=== PATIENT | male | born 1955 | race Caucasian/White ===

== ENCOUNTER 2021-08-15 09:45 | Emergency (ER) | payer BC, MEDICARE, OTHER ==
[2021-08-15] MEDS ORDERED: Ketorolac 60 MG/2 ML SDV IM ONE (10:04)
--- NOTE | 2021-08-15 12:06 | EDM.PDOC ---
ED HPI GENERAL MEDICAL PROBLEM - General Chief Complaint: General Stated Complaint: pain Time Seen by Provider: 08/15/21 10:00 Source of Information: Reports: Patient, RN Notes Reviewed History Limitations: Reports: No Limitations - History of Present Illness INITIAL COMMENTS - FREE TEXT/NARRATIVE: This patient presents to the emergency department for evaluation of pain. He states he had a sudden onset of left lower back pain this morning that woke him from sleep. He has never had any kind of pain like this before and states that it is unbearable. He was unable to urinate at home. He has not tried anything for the pain but came in right away. He denies fever, cough, chest pain, difficulty breathing. He states he has some nausea which he thinks is related to the pain but has had no vomiting or diarrhea. He denies other concerns or complaints he has no history of kidney disease Bilateral Flank Pain Score (Numeric/FACES): 0 - Related Data Allergies Allergy/AdvReac Type Severity Reaction Status Date / Time No Known Allergies Allergy Verified 08/15/21 10:23 Home Meds: Home Meds Fenofibrate,Micronized [Fenofibrate] 160 mg PO DAILY 08/15/21 [History] Insulin Glarg,Human.Rec.Analog [Lantus Solostar] 20 unit SUBCUT DAILY 08/15/21 [History] Levothyroxine Sodium [Levothyroxine] 0.175 mcg PO DAILY 08/15/21 [History] atorvaSTATin [Lipitor] 40 % PO DAILY 08/15/21 [History] carvediloL [Carvedilol] 25 mg PO BID 08/15/21 [History] glipiZIDE [Glucotrol] 10 mg PO DAILY 08/15/21 [History] Past Medical History Cardiovascular History: Reports: AR, Stents Endocrine/Metabolic History: Reports: Diabetes, Type II - Past Surgical History Musculoskeletal Surgical History: Reports: Shoulder Surgery, Other (See Below) Other Musculoskeletal Surgeries/Procedures:: knee surgery Social & Family History - Recreational Drug Use Recreational Drug Use: No ED ROS GENERAL - Review of Systems Review Of Systems: Comprehensive ROS is negative, except as noted in HPI. ED EXAM, GENERAL - Physical Exam Exam: See Below Exam Limited By: No Limitations General Appearance: Alert, No Apparent Distress, Severe Distress (Screaming in pain) Eye Exam: Bilateral Eye: EOMI, Normal Inspection, PERRL Ears: Normal External Exam Throat/Mouth: Normal Inspection Head: Atraumatic, Normocephalic Respiratory/Chest: No Respiratory Distress, Lungs Clear, Normal Breath Sounds, No Accessory Muscle Use Cardiovascular: Regular Rate, Rhythm Back Exam: CVA Tenderness (L). No: CVA Tenderness (R) Neurological: Alert, Oriented Psychiatric: Anxious Skin Exam: Warm, Dry Course - Vital Signs Last Recorded V/S: Last Vital Signs Temp 36.1 C 08/15/21 10:20 Pulse 80 08/15/21 10:20 Resp 16 08/15/21 10:20 BP 132/69 08/15/21 10:20 Pulse Ox 100 08/15/21 10:20 - Orders/Labs/Meds Orders: Active Orders 24 hr Category Date Time Status Abdomen Pelvis wo Cont [CT] Stat Exams 08/15/21 10:13 Taken Labs: Laboratory Tests 08/15/21 Range/Units 09:49 Urine Color Yellow Urine Appearance Clear (CLEAR) Urine pH 6.5 (5.0-8.0) Ur Specific Forbes 1.015 (1.003-1.030) Urine Protein Negative (NEGATIVE) mg/dL Urine Glucose (UA) 500 H (NEGATIVE) mg/dL Urine Ketones Trace H (NEGATIVE) mg/dL Urine Occult Blood Trace-lysed H (NEGATIVE) Urine Nitrite Negative (NEGATIVE) Urine Bilirubin Negative (NEGATIVE) Urine Urobilinogen 0.2 (0.2-1.0) E.U./dL Ur Leukocyte Esterase Negative (NEGATIVE) Urine RBC 0-5 H /HPF Urine WBC 0-5 H /HPF Ur Squamous Epith Cells Few /HPF Meds: Medications Discontinued Medications Generic Name Dose Route Start Last Admin Trade Name Freq PRN Reason Stop Dose Admin Ketorolac Tromethamine 60 mg 08/15/21 10:04 08/15/21 10:10 Ketorolac 60 Mg/2 Ml Sdv IM 08/15/21 10:05 60 mg ONETIME ONE Administration - Re-Assessments/Exams Free Text/Narrative Re-Assessment/Exam: This patient presents to the emergency department for evaluation of left flank pain. History and urinalysis is most consistent with a kidney stone; however, CT scan does not confirm this. He did have a rather sudden resolution of his pain while sitting on the toilet to pee just after he was given Toradol. I am suspicious that he may have passed a kidney stone at that time which was gone unnoticed. He did have a CT after that time. After his CT scan he is completely comfortable in the ED, I did share the findings from his CT with him and that it included some moderate constipation. He understands that I cannot attribute his pain to any one particular thing today but I did share my suspicion with him that he had had a kidney stone which was passed. His pain was completely controlled in the emergency department with some Toradol and he is hemodynamically stable. His physical exam is otherwise negative. He will be discharged to home with instructions to follow-up as needed. The patient was stable at the time of discharge. 08/15/21 12:40 Departure - Departure Time of Disposition: 12:15 Disposition: Home, Self-Care 01 Condition: Good Clinical Impression: Back pain, Constipation - Discharge Information Instructions: Constipation, Adult, [id number], Kidney Stones, [id number] Referrals: PCP,None [Primary Care Provider] - Forms: ED Department Discharge Care Plan Goals: follow up as needed. Sepsis Event Note (ED) - Evaluation Sepsis Screening Result: No Definite Risk - Focused Exam Vital Signs: Vital Signs Temp Pulse Resp BP Pulse Ox 08/15/21 10:20 36.1 C 80 16 132/69 100 08/15/21 09:58 35.5 C L 78 20 100 - My Orders Last 24 Hours: My Active Orders 08/15/21 10:13 Abdomen Pelvis wo Cont [CT] Stat - Assessment/Plan Last 24 Hours: My Active Orders 08/15/21 10:13 Abdomen Pelvis wo Cont [CT] Stat
--- NOTE | 2021-08-17 10:14 | CT ---
DATE OF SERVICE: 08/15/2021 CLINICAL DATA: R/O stone. UNENHANCED ABDOMEN AND PELVIC CT: Multislice axial acquisition without IV or oral contrast was performed. There are atelectatic/fibrotic changes in a linear segment of the left upper lobe. The lung bases are otherwise clear. The heart size is normal. There are cardiac pacer wires in place. The unenhanced liver appears normal. No focal hepatic lesions. The gallbladder appears normal. No calcified gallstones. No pericholecystic fluid. The spleen appears normal. The pancreas appears normal. The right and left adrenals appear normal. The right and left kidneys appear normal. No nephrocalcinosis or nephrolithiasis. No hydronephrosis or hydroureter. The appendix is not dilated. No evidence of appendicitis. There is a moderate amount of stool present throughout the colon and rectum. No free air. No free fluid. No dilated loops of bowel. No adenopathy. No aortic aneurysm. There is mild diffuse gastric wall thickening. This is probably related to nondistention. There is a small hiatal hernia. There is a fat containing umbilical hernia. There are bilateral fat containing inguinal hernias. There is degenerative disc disease throughout the lower thoracic and lumbar spine. There is mild compression deformity of multiple lower thoracic vertebrae, age indeterminate. No other significant findings. [id number] [facility]
== END 2021-08-15 12:08 | disposition home or self-care (01) ==
LOC: LB.ED 09:45
DX: M54.50 Low back pain, unspecified (principal); K59.00 Constipation, unspecified; E11.9 Type 2 diabetes mellitus without complications; Z79.4 Long term (current) use of insulin; Z79.899 Other long term (current) drug therapy
CPT/HCPCS: 74176; 81001; 96372; 99284; J1885

== ENCOUNTER 2025-01-24 12:27 | Emergency (ER) | payer SELFPAY ==
[2025-01-24] MEDS: Lactated Ringers 1,000 ML IV SCH (12:33)
[2025-01-24] MEDS ORDERED: Sodium Chloride 0.9% 10 ML Syringe FLUSH PRN (12:36)
[2025-01-24 13:16] LABS: BASOPHILS ABSOLUTE AUTO 0.03 K/uL (0.02-0.10); BASOPHILS PERCENT AUTO 0.5 % (0.0-0.5); EOSINOPHILS ABSOLUTE AUTO 0.06 K/uL (0.04-0.40); HEMATOCRIT 32.9 % (40.0-54.0); HEMOGLOBIN 11.7 g/dL (13.0-18.0); LYMPHOCYTES ABSOLUTE AUTO 0.41 K/uL (1.50-4.00); MEAN CORPUSCULAR HEMOGLOBIN 32.7 pg (27.0-32.0); MEAN CORPUSCULAR HGB CONC 35.6 g/dL (31.0-35.0); MEAN CORPUSCULAR VOLUME 92 fL (76-96); MEAN PLATELET VOLUME 10.2 fL (6.0-10.0); MONOCYTES PERCENT AUTO 5.1 % (3.0-10.0); NEUTROPHILS ABSOLUTE AUTO 5.06 K/uL (2.00-7.50); NEUTROPHILS PERCENT AUTO 86.4 % (45.0-70.0); PLATELET COUNT,PLT 81 K/uL (150-400); RED BLOOD CELL COUNT 3.58 M/uL (4.50-6.50); RED CELL DISTRIBUTION WIDTH 15.4 % (11.0-16.0); WHITE BLOOD CELL COUNT,WBC 5.9 K/uL (4.0-11.0)
[2025-01-24 13:28] LABS: APPEARANCE,URINE CLEAR (CLEAR); BILIRUBIN,URINE SMALL (NEGATIVE); GLUCOSE,URINE 100 mg/dL (NEGATIVE); KETONES,URINE NEGATIVE (NEGATIVE); LEUKOCYTE ESTERASE,URINE NEGATIVE (NEGATIVE); NITRITE,URINE NEGATIVE (NEGATIVE); OCCULT BLOOD,URINE NEGATIVE (NEGATIVE); PH,URINE 5.5 (5.0-8.0); PROTEIN,URINE 100 mg/dL (NEGATIVE)
[2025-01-24 13:29] LABS: COLOR,URINE OTHER
[2025-01-24 13:42] LABS: ALANINE AMINOTRANSFERASE,ALT 122 U/L (12-78); ALBUMIN 3.1 g/dL (3.4-5.0); ALKALINE PHOSPHATASE 205 U/L (46-116); ANION GAP 9.9 mmol/L (5.0-15.0); ASPARTATE AMNIOTRANSFERASE,AST 59 U/L (15-37); BILIRUBIN TOTAL 0.8 mg/dL (0.0-1.0); BLOOD UREA NITROGEN,BUN 17 mg/dL (8-26); BUN/CREATININE RATIO 20.5 (6-25); C-REACTIVE PROTEIN 12.7 mg/L (<5.0); CARBON DIOXIDE,CO2 31.7 mmol/L (21.0-32.0); CHLORIDE,CL 103 mmol/L (98-107); CREATININE 0.83 mg/dL (0.70-1.30); ESTIMATED GFR 94 mL/min (>60); GLUCOSE RANDOM 123 mg/dL (74-100); MAGNESIUM 1.8 mg/dL (1.8-2.4); POTASSIUM,K 3.6 mmol/L (3.5-5.1); PROTEIN TOTAL,TP 6.2 g/dL (6.4-8.2); SODIUM,NA 141 mmol/L (136-145); TROPONIN I HIGH SENSITIVITY 18.9 pg/ml (<=60.4)
[2025-01-24 13:49] LABS: LACTIC ACID 0.9 mmol/L (0.4-2.0)
[2025-01-24 13:53] LABS: RBC,URINE NOT SEEN /HPF; SQUAMOUS EPITHELIAL CELLS,UR OCCASIONAL /HPF; WBC,URINE 0-5 /HPF
[2025-01-24] MEDS: Naloxone 2 MG/2 ML Syringe IVPUSH PRN (13:54)
[2025-01-24] MEDS: cefTRIAXone 2 GM Vial IVPUSH SCH (14:00)
[2025-01-24] MEDS: cefTRIAXone 2 GM in Sodium Chloride 0.9% 100 ML IV ONE (14:06)
[2025-01-24] MEDS: Norepinephrine Bit/0.9 % NaCl 4 MG in Premix Bag 1 BAG IV SCH (14:20)
[2025-01-24] MEDS: methylPREDNISolone Sodium Succinate 125 MG/2 ML SDV IVPUSH ONE (14:28)
[2025-01-24 14:45] LABS: PCO2 VENOUS 51.1 mm/Hg (41-51); PH,VENOUS 7.33 (7.31-7.41)
[2025-01-24 14:46] LABS: BASE EXCESS VENOUS 0.8 mm/L (-2-3); BICARBONATE,VENOUS 26.8 mmol/L (23.0-28.0)
[2025-01-24 14:56] LABS: AMPHETAMINES SCREEN, URINE NEGATIVE (NEGATIVE); BARBITURATE SCREEN,URINE NEGATIVE (NEGATIVE); BENZODIAZEPINES SCREEN,URINE NEGATIVE (NEGATIVE); METHADONE SCREEN, URINE NEGATIVE (NEGATIVE); METHAMPHETAMINES SCREEN, URINE NEGATIVE (NEGATIVE); OXYCODONE SCREEN,URINE NEGATIVE (NEGATIVE); THC SCREEN,URINE 50 NG/ML POSITIVE (NEGATIVE)
[2025-01-24 18:45] VITALS: BP 121/87; PULSE 80
== END 2025-01-24 15:15 ==
LOC: LB.ED 12:27
DX: E03.5 Myxedema coma (principal); R40.2420 Glasgow coma scale score 9-12, unspecified time; I25.2 Old myocardial infarction; Z79.4 Long term (current) use of insulin; Z95.5 Presence of coronary angioplasty implant and graft; Z79.890 Hormone replacement therapy; Z79.84 Long term (current) use of oral hypoglycemic drugs
CPT/HCPCS: 36415; 51702; 70450; 71045; 71250; 74176; 80053; 80307; 81001; 82140; 82803; 83605; 83735; 83880; 84100; 84443; 84484; 85025; 86140; 87040; 93005; 93010; 96361; 96365; 96367; 96375; 99285; 99285-25; A0425; A0428; A0429; A9270-GY; J0696; J2310; J2919; J7120